=== PATIENT | female | born 1990 | race Caucasian/White ===

== ENCOUNTER 2018-10-24 20:23 | Emergency (ER) | payer MEDICAID, OTHER ==
[~2018-10-24] VITALS: Ht 154.9 cm; Wt 67.1 kg
[~2018-10-24 20:23] MED LIST: ACET325T33 PO; CEPH-443 PO
[2018-10-24 20:25] VITALS: BP 104/73; PULSE 94; RESP 18; Ht 154.9 cm; Wt 67.1 kg
[2018-10-24] MEDS ORDERED: ACETAMINOPHEN 325 MG TAB PO STA (21:34)
[2018-10-25] MEDS ORDERED: CEPHALEXIN 500 MG CAP PO ONE (01:00)
== END 2018-10-25 02:19 | disposition home or self-care (01) ==
LOC: FTE 20:23
DX: O23.11 Infections of bladder in pregnancy, first trimester (principal); Z3A.01 Less than 8 weeks gestation of pregnancy
CPT/HCPCS: 36415; 76801; 81001; 84702; 85025; 86900; 86901; Z7502; Z7610